=== PATIENT | female | born 1960 | race Caucasian/White ===

== ENCOUNTER 2020-10-23 08:06 | Outpatient (REF) | payer OTHER, SELFPAY ==
--- NOTE | ~2020-10-23 | XR_ITS ---
EXAMINATION: XR SHOULDER, RIGHT CLINICAL INFORMATION: Right shoulder pain. COMPARISON: None TECHNIQUE: Right shoulder is imaged in 3 views. FINDINGS: There is bulky calcific tendinosis in the region of the distal superior rotator cuff. There is no fracture, dislocation, or destructive process. No erosive change. The glenohumeral joint is unremarkable. There are degenerative changes acromioclavicular joint. The acromioclavicular alignment is normal. There is some mild spurring at the superior lateral aspect acromium. XR/XR shoulder RT min 2V IMPRESSION: 1. Bulky calcific tendinosis distal superior rotator cuff. 2. Degenerative changes acromioclavicular joint.
== END 2020-10-23 08:07 | disposition home or self-care (01) ==
LOC: HO.HOSX 08:06
PROVIDERS: Visit Provider Orthopaedic Surgery
DX: M75.31 Calcific tendinitis of right shoulder (principal); R20.0 Anesthesia of skin
CPT/HCPCS: 20610; 73030; 99212; J1100